=== PATIENT | female | born 1995 | race Caucasian/White ===

== ENCOUNTER 2016-07-16 04:12 | Inpatient (IN) | payer OTHER ==
[2016-07-16 05:12] LABS: HCT 37.6 % (37.0-47.0); HGB 12.6 g/dl (12.5-16.0); MCH 27.5 pg (25.0-31.0); MCHC 33.5 g/dL (32.0-36.0); MCV 81.9 fL (78.0-100.0); MPV 10.5 fL (6.0-9.5); RBC 4.59 M/uL (4.20-5.40)
[2016-07-17 06:51] LABS: HCT 32.8 % (37.0-47.0); HGB 10.6 g/dl (12.5-16.0); MCH 27.3 pg (25.0-31.0); MCHC 32.3 g/dL (32.0-36.0); MCV 84.5 fL (78.0-100.0); MPV 10.3 fL (6.0-9.5); RBC 3.88 M/uL (4.20-5.40); RDW 13.9 % (11.5-14.0); WBC 15.6 K/uL (4.0-10.5)
== END 2016-07-18 14:05 | disposition home or self-care (01) | DRG 775 ==
LOC: FOD 04:12 → FOB 04:13 → FOD 04:38 → FOB 04:39
PROVIDERS: ADMIT Obstetrics & Gynecology
PROC: 10E0XZZ Delivery of Products of Conception, External Approach (ICD-10-PCS; principal; 2016-07-16)
PROC: 10907ZC Drainage of Amniotic Fluid, Therapeutic from Products of Conception, Via Natural or Artificial Opening (ICD-10-PCS; 2016-07-16)
PROC: 0HQ9XZZ Repair Perineum Skin, External Approach (ICD-10-PCS; 2016-07-16)
DX: O70.0 First degree perineal laceration during delivery (principal); D62 Acute posthemorrhagic anemia; E66.9 Obesity, unspecified; Z68.35 Body mass index [BMI] 35.0-35.9, adult; O99.324 Drug use complicating childbirth; O99.214 Obesity complicating childbirth; F12.90 Cannabis use, unspecified, uncomplicated; Z3A.39 39 weeks gestation of pregnancy; Z37.0 Single live birth; O99.03 Anemia complicating the puerperium; R42 Dizziness and giddiness
CPT/HCPCS: 36415; 80305; 81001; J2300; J2405